=== PATIENT | male | born 1950 | race Caucasian/White ===

== ENCOUNTER 2020-03-08 16:14 | Observation (INO) | payer BC, SELFPAY ==
--- NOTE | ~2020-03-08 | XR_ITS ---
EXAMINATION: XR chest 1V portable INDICATION: Dysphagia TECHNIQUE: Portable AP chest at 2011 hours COMPARISON: None available FINDINGS: The lungs are free of acute opacities. There is no pleural effusion or pneumothorax. The he art size is normal. The visualized osseous structures are unremarkable. There is mild rightward devia tion of the trachea. IMPRESSION: 1. Mild rightward deviation of the trachea which could reflect mediastinal mass. Consider further cara luation with contrast-enhanced CT of the chest. Reviewed, dictated and finalized at location A. IMPRESSION: 1. Mild rightward deviation of the trachea which could reflect mediastinal mass . Consider further evaluation with contrast-enhanced CT of the chest.
[2020-03-08 16:18] VITALS: BP 175/92; PULSE 91; RESP 18; TEMP 36.8; O2SAT 96
--- NOTE | 2020-03-08 18:10 | ED.GENADULT ---
HPI - General Adult General Chief complaint: Unspecified Stated complaint: i feel like theres something in my throat Time Seen by Provider: 03/08/20 18:04 History of Present Illness HPI narrative: Patient is a 69 y/o male complaining of dysphagia starting this morning. He states that he was eating chicken salad this morning and felt something was stuck. Since then, he is not able to keep anything down. He attempted to drink some water, but it comes back up. There is no alleviating or exacerbating factor. Related Data Home Medications Medication Instructions Recorded Confirmed levothyroxine 25 mcg PO DAILY 03/08/20 03/08/20 Allergies Allergy/AdvReac Type Severity Reaction Status Date / Time No Known Allergies Allergy Verified 03/08/20 18:47 Review of Systems Constitutional: Constitutional: Denies chills, Denies fever(s), Reports headache(s) and Denies weakness Eyes: Eyes: Denies blurry vision ENT: Denies headache(s) and Denies neck pain Cardiovascular: Cardiovascular: Denies chest pain and Denies dyspnea Respiratory: Respiratory: Denies cough and Denies dyspnea Gastrointestinal: Gastrointestinal: Reports as per HPI, Denies abdominal pain, Denies diarrhea, Denies nausea, Reports vomiting and Reports other (unable to keep liquids down) Genitourinary: Genitourinary: Denies hematuria and Denies dysuria Musculoskeletal: Musculoskeletal: Denies back pain and Denies neck pain Neurologic: Denies headache(s) and Denies weakness PMFSH Past Medical History Medical History (Updated 03/08/20 @ 23:19 by Azucena Ospina MD) Esophageal varices Hypothyroidism Surgical History Surgical History (Updated 03/08/20 @ 20:40 by Arias Graff MD) H/O colonoscopy History of esophagogastroduodenoscopy (EGD) Social History Social History (Updated 03/08/20 @ 20:40 by Arias Graff MD) Smoking status: Never smoker Alcohol intake: former Drinks per week: 50 Substance use: never Gender identity (if verbalized by the patient): Male Sexual Orientation (if Verbalized by the Patient): Straight or Heterosexual Spiritual care concerns: No Exam Const: General: no acute distress and well developed Orientation/consciousness: oriented to person, oriented to place, oriented to time and patient oriented x3 HENMT: Head: normocephalic Ears: external ears normal General nose exam: Normal external nose present Eyes: General: appearance normal, both eyes and all related structures Conjunctivae: conjunctivae normal Neck: Neck: normal visual inspection and full ROM Chest: Chest palpation & inspection: normal inspection of the chest and no tenderness Resp: Effort & Inspection: normal respiratory effort Auscultation: clear to auscultation bilaterally Cardio: Rate: regular rate Rhythm: regular rhythm GI: GI Palp: No abdominal tenderness and Yes Soft to palpation Skin: General skin exam: normal color and turgor normal Neuro: General: oriented to person, oriented to place, oriented to time and patient oriented x3 Cognition (Neuro): normal cognition Extrem: General: normal to inspection, full ROM and no pedal edema Psych: Appearance: grossly normal Mental Status: mental status grossly normal Affect: normal affect Course Consultations Consultation #1: Discussed with Dr. Peralta, who recommends admitting to hospitalist and will plan EGD in AM. Date: 03/08/20 Time: 19:41 Consultation #2: Discussed with Dr. Graff, who agrees to admit. Date: 03/08/20 Vital Signs Vital signs: Vital Signs Temperature 36.8 C 03/08/20 16:18 Pulse Rate 91 03/08/20 16:18 Respiratory Rate 18 03/08/20 16:18 Blood Pressure 175/92 H 03/08/20 16:18 Pulse Oximetry 96 03/08/20 16:18 Temperature 36.8 C 03/08/20 16:18 Pulse Rate 72 03/08/20 21:00 Respiratory Rate 20 03/08/20 21:00 Blood Pressure 159/87 H 03/08/20 21:00 Pulse Oximetry 95 03/08/20 21:00 Medical Decision Making Vital Signs Vital
[2020-03-08] MEDS: SODIUM CHLORIDE 0.9% IV 1,000 ML 999 ML IV CONT (18:30)
[2020-03-08] MEDS: GLUCAGON FOR INJ 1 MG VIAL IV PUSH (18:30)
[2020-03-08 18:34] LABS: Basophils Percent Auto 0.5 % (0.2-1.2); Eosinophils Absolute Auto 0.1 K/mm3 (0-0.3); Eosinophils Percent Auto 2.1 % (0-4.4); Hematocrit 44.8 % (42.0-52.0); Hemoglobin 15.6 g/dL (14.0-18.0); Immature Granulocyte Absolute 0.01 K/mm3 (0.00-0.031); Immature Granulocyte Percent A 0.2 % (0-0.5); Immature Platelet Fraction Pct 4.7 % (0.9-11.2); Lymphocytes Absolute Auto 0.86 K/mm3 (0.9-3.2); Lymphocytes Percent Auto 14.2 % (18.3-44.2); Mean Corpuscular HGB Conc 34.8 g/dl (32-36); Mean Corpuscular Hemoglobin 30.6 pg (26-34); Mean Corpuscular Volume 87.8 fl (80-100); Mean Platelet Volume 11.5 fl (7.4-10.4); Monocytes Absolute Auto 0.5 K/mm3 (0.1-0.6); Monocytes Percent Auto 8.4 % (2.6-8.5); Neutrophils Absolute Auto 4.5 K/mm3 (1.3-6.7); Neutrophils Percent Auto 74.6 % (45.5-73.1); Platelet Count Result 95 k/mm3 (150-375); Red Cell Distribution Width 14.3 % (11.5-14.5); White Blood Count 6.1 K/mm3 (4.5-10.0)
[2020-03-08 18:44] LABS: Alanine Aminotransferase 38 U/L (4-50); Albumin Level 4.6 g/dL (3.5-5.1); Alkaline Phosphatase 73 U/L (38-126); Aspartate Amino Transferase 40 U/L (17-59); Bilirubin,Total 1.9 mg/dL (0.2-1.3); Blood Urea Nitrogen 13 mg/dL (9-20); Calcium 9.3 mg/dL (8.4-10.2); Carbon Dioxide 22 mmol/L (22-30); Chloride 108 mmol/L (98-107); Estimated CRCL calculation 121 ml/min; Estimated Glomerular Filt Rate > 60; Glucose 104 mg/dL (75-110); Sodium 139 mmol/L (137-145)
[2020-03-08 19:37] VITALS: BP 151/94; PULSE 85; RESP 20; O2SAT 97
[2020-03-08 19:38] VITALS: PULSE 84
--- NOTE | 2020-03-08 20:06 | PC.NURSE ---
During assessment Pt states hes not so much in pain more like discomfort, states he feels like a big chunk of meat is just sitting in his throat. Pt is able to speak clearly and moving air freely. I spoke with MD Ospina about Xray of throat he states there is no need for one, pt will be admitted and be seeing Endo in the morning.I did update Pt and on this information.
--- NOTE | 2020-03-08 20:36 | PM.IMHP ---
H&P: HPI History of Present Illness Chief complaint: i feel like theres something in my throat Narrative: This is a 69 year old morbidly obese male with known Hypothyroidism who presented to the hospital with a complaint of something getting stuck in his esophagus this morning. The patient was eating a chicken salad he got from [employer] and it got stuck when he tried to swallow it. He admits that he is missing several teeth and doesn't chew up his food well. He has had multiple episodes in the past of getting food stuck in his esophagus but it always came up on its own. He has had discomfort all day and finally decided to come into the ER as he was not able to even drink water. He denies any fevers, chills, shortness of breath, abdominal pain, dysuria, or significant chest pain. He is able to control his secretions at this time. He is mostly complaining of a discomfort in the region of his neck. The patient admits to me that he was a former alcoholic and does have a history of esophageal varices. His last EGD was about 1.5 years ago. ER provider has consulted GI, Dr. Peralta who has asked that we admit the patient to the hospital for him and he will see the patient in the morning. Review of Systems Review of Systems: All systems reviewed & are unremarkable except as noted in HPI and below PMFSH Past Medical History Medical History (Updated 03/08/20 @ 20:44 by Arias Graff MD) Esophageal varices Hypothyroidism Surgical History Surgical History (Updated 03/08/20 @ 20:40 by Arias Graff MD) H/O colonoscopy History of esophagogastroduodenoscopy (EGD) Social History Social History (Updated 03/08/20 @ 20:40 by Arias Graff MD) Alcohol intake: former Meds Home Medications and Allergies Allergies Allergy/AdvReac Type Severity Reaction Status Date / Time No Known Allergies Allergy Verified 03/08/20 18:47 Vital Signs Vital Signs - 24 hr 03/08/20 16:18 03/08/20 19:37 03/08/20 19:38 Temperature 36.8 C Pulse Rate 91 85 84 Respiratory Rate 18 20 Blood Pressure 175/92 H 151/94 H Pulse Oximetry 96 97 Exam Const: General: cooperative, alert, awake, in distress mild and uncomfortable Nutritional Appearance: obese morbidly obese Orientation/consciousness: patient oriented x3 HENMT: Head: normal to inspection General nose exam: Normal external nose present Face and sinus: normal facial exam Mouth: Yes Normal oral and palatal mucosa present and Yes oropharynx normal Eyes: Pupils: Equal, round and reactive pupils present EOM: EOMs intact bilaterally Neck: Neck: supple and no JVD Thyroid: thyroid normal Lymphatic: lymphadenopathy not noted Resp: Effort & Inspection: normal respiratory effort Auscultation: clear to auscultation bilaterally Cardio: Rate: regular rate Rhythm: regular rhythm Heart sounds: no murmurs GI: Inspection: normal to inspection Auscultation: normal bowel sounds Skin: General skin exam: normal color and no rashes or lesions noted Neuro: General: patient oriented x3 Cranial nerves: Yes CN's II-XII intact bilaterally and Yes Equal, round and reactive pupils present Speech: normal speech Motor exam (neuro): 5/5 motor strength present throughout Sensory Exam: normal sensation Extrem: General: normal to inspection and no edema Psych: Mental Status: mental status grossly normal Affect: normal affect H&P: Results Labs Labs: Short CBC 03/08/20 Range/Units 18:26 WBC 6.1 (4.5-10.0) K/mm3 Hgb 15.6 (14.0-18.0) g/dL Hct 44.8 (42.0-52.0) % Plt Count 95 L (150-375) k/mm3 BMP 03/08/20 18:26 Sodium 139 Potassium 4.0 Chloride 108 H Carbon Dioxide 22 BUN 13 Creatinine 0.70 Glucose 104 Calcium 9.3 Liver Function 03/08/20 Range/Units 18:26 Total Bilirubin 1.9 H (0.2-1.3) mg/dL AST 40 (17-59) U/L ALT 38 (4-50) U/L Alkaline Phosphatase 73 (38-126) U/L Albumin 4.6 (3.5-5.1) g/dL Imaging Chest
[2020-03-08 21:00] VITALS: BP 159/87; PULSE 72; RESP 20; O2SAT 95
--- NOTE | 2020-03-08 21:40 | PC.NURSE ---
Pt states the tight feeling in his throat has now moved down to his belly.
[2020-03-08 22:00] VITALS: BP 159/87; PULSE 71; RESP 18; O2SAT 96
[2020-03-08 22:20] VITALS: BP 128/60; PULSE 82; RESP 18; TEMP 36.5; O2SAT 94; BMI 43.3
[2020-03-08 22:28] VITALS: BMI 44.4
--- NOTE | 2020-03-08 22:36 | ADMGEN ---
This patient, John Urbano, was admitted to [facility] Surg Room 316-01. Patient/family oriented to hospital policies and general routines including ID bracelet, bed and alarms, visiting hours, pain management, procedures, bathroom and other care routines, personal items, smoking policy, room service/diet, and visiting hours. Valuables list has been completed. Information on how to activate the Rapid Response Team has been discussed. Patient/Family are encouraged to report perceived risks to care and to ask questions if they do not understand what they are told or what they should do.
[2020-03-08] MEDS: SODIUM CHLORIDE 0.9% IV 1,000 ML 125 ML IV CONT (22:41)
[2020-03-08] MEDS: MORPHINE SULFATE 2 MG/ML INJ IV PUSH (22:46)
[2020-03-09] VITALS (9 sets, daily range): BP systolic 140–162; BP diastolic 75–108; PULSE 63–91; RESP 14–20; TEMP 36.2–36.8; O2SAT 95–99
[2020-03-09] MEDS: MORPHINE SULFATE 2 MG/ML INJ IV PUSH (02:56)
[2020-03-09] MEDS: SODIUM CHLORIDE 0.9% IV 1,000 ML 125 ML IV CONT (05:23)
[2020-03-09] MEDS: LEVOTHYROXINE SODIUM INJ 100 MCG/5 ML VIAL 12.5 MCG IV PUSH (06:51)
--- NOTE | 2020-03-09 07:24 | WPDANESEPPF ---
Anes - Initial Pre Proc Eval Procedure: Operation Date: 03/09/20 12:30 Proposed Procedures p Esophagogastroduodenoscopy - Panchito Peralta MD Date/Time: 03/09/20 07:24 Surgeon: Jose Feliz MD Pre Op Diagnosis: esophageal obstruction Patient Data Age: 69 Gender: M Height: 1.78 m Weight: 140.6 kg Last Vital Signs Temp 36.3 C L 03/09/20 06:00 Pulse 91 03/09/20 06:00 Resp 16 03/09/20 06:00 BP 146/75 H 03/09/20 06:00 Pulse Ox 97 03/09/20 06:00 Allergies Allergy/AdvReac Type Severity Reaction Status Date / Time No Known Allergies Allergy Verified 03/08/20 18:47 Home Medications Medication Instructions Recorded Confirmed Type levothyroxine 25 mcg PO DAILY 03/08/20 03/08/20 History Laboratory Tests 03/08/20 03/08/20 18:26 18:26 WBC 6.1 K/mm3 K/mm3 (4.5-10.0) RBC 5.10 M/mm3 M/mm3 (4.6-6.20) Hgb 15.6 g/dL g/dL (14.0-18.0) Hct 44.8 % % (42.0-52.0) MCV 87.8 fl fl (80-100) MCH 30.6 pg pg (26-34) MCHC 34.8 g/dl g/dl (32-36) RDW 14.3 % % (11.5-14.5) Plt Count 95 k/mm3 L k/mm3 (150-375) MPV 11.5 fl H fl (7.4-10.4) Immature Gran % (Auto) 0.2 % % (0-0.5) Neut % (Auto) 74.6 % H % (45.5-73.1) Lymph % (Auto) 14.2 % L % (18.3-44.2) [place] % (Auto) 8.4 % % (2.6-8.5) Eos % (Auto) 2.1 % % (0-4.4) Baso % (Auto) 0.5 % % (0.2-1.2) Lymph # (Auto) 0.86 K/mm3 L K/mm3 (0.9-3.2) [place] # (Auto) 0.5 K/mm3 K/mm3 (0.1-0.6) Eos # (Auto) 0.1 K/mm3 K/mm3 (0-0.3) Baso # (Auto) 0.0 K/mm3 K/mm3 (0.0-0.1) Abs Immat Gran (auto) 0.01 K/mm3 K/mm3 (0.00-0.031) Absolute Neuts (auto) 4.5 K/mm3 K/mm3 (1.3-6.7) Absolute Nucleated RBC 0.0 K/mm3 K/mm3 (0.0-0.012) Nucleated RBC % 0.0 % % (0.0-0.2) % Immature Plt Fraction 4.7 % % (0.9-11.2) Sodium 139 mmol/L mmol/L (137-145) Potassium 4.0 mmol/L mmol/L (3.4-5.0) Chloride 108 mmol/L H mmol/L (98-107) Carbon Dioxide 22 mmol/L mmol/L (22-30) BUN 13 mg/dL mg/dL (9-20) Creatinine 0.70 mg/dL mg/dL (0.7-1.3) Estim Creat Clear Calc 121 ml/min ml/min Estimated GFR > 60 (59 - ) Glucose 104 mg/dL mg/dL (75-110) Calcium 9.3 mg/dL mg/dL (8.4-10.2) Total Bilirubin 1.9 mg/dL H mg/dL (0.2-1.3) AST 40 U/L U/L (17-59) ALT 38 U/L U/L (4-50) Alkaline Phosphatase 73 U/L U/L (38-126) Total Protein 9.0 g/dL H g/dL (6.3-8.2) Albumin 4.6 g/dL g/dL (3.5-5.1) Patient hx anesthesia problems: none Family hx anesthesia problems: none PMFSH Past Medical History Medical History (Updated 03/09/20 @ 07:27 by Marshall Manuel MD) Esophageal varices ETOH abuse Food impaction of esophagus Hypothyroidism Morbid obesity with BMI of 40.0-44.9, adult Surgical History Surgical History (Updated 03/08/20 @ 20:40 by Arias Graff MD) H/O colonoscopy History of esophagogastroduodenoscopy (EGD) Social History Social History (Updated 03/08/20 @ 20:40 by Arias Graff MD) Smoking status: Never smoker Alcohol intake: former Drinks per week: 50 Substance use: never Gender identity (if verbalized by the patient): Male Sexual Orientation (if Verbalized by the Patient): Straight or Heterosexual Spiritual care concerns: No Anes - Eval Final PreProcedure Day of Procedure 03/09/20 07:24 Patient weight: morbidly obese Heart: regular rate and rhythm Lungs: clear to auscultation and normal air movement Airway: Mallampati scale class II Neurological: alert and oriented Last oral intake: >/= 8 hours ASA classification: IV Emergent: no Anesthetic plan: proceed Anesthesia type and monitoring: general ETT Informed Consent: The patient's anesthetic plan and its attendant risks and benefits were discussed with the patient/famil
--- NOTE | 2020-03-09 07:31 | PC.NURSE ---
To GI Lab per juliet, IV #20 left wrist, SL. Report given to KIRA Ko.
[2020-03-09] MEDS: LACTATED RINGERS 1,000 ML 150 ML IV CONT (07:37)
--- NOTE | 2020-03-09 07:51 | WPDGICN ---
Assessment and Plan Assessment and plan (1) Food impaction of esophagus: Qualifiers: Encounter type: initial encounter Qualified Code(s): T18.128A - Food in esophagus causing other injury, initial encounter Code(s): T18.128A - Food in esophagus causing other injury, initial encounter Status: Acute Assessment and Plan: Patient has a food obstruction that began 24 hours ago. Check-in Po which appears stuck in the mid portion of the chest. Plan is for EGD to assess and remove obstruction. Symptoms seem to begun after treatment esophageal varices esophageal narrowing is suspected further recommendations will be given after endoscopy. (2) Esophageal varices: Qualifiers: Esophageal varices type: unspecified type Esophageal varices bleeding: without bleeding Qualified Code(s): I85.00 - Esophageal varices without bleeding Code(s): I85.00 - Esophageal varices without bleeding Status: Chronic Assessment and Plan: Patient has a distant history of esophageal varices. This is attributed alcoholic cirrhosis of the liver. Patient currently is abstinent from alcohol for many years. Currently follows with Gastroenterology in [place]. These will be assessed at time of endoscopy. (3) Morbid obesity with BMI of 40.0-44.9, adult: Code(s): E66.01 - Morbid (severe) obesity due to excess calories; Z68.41 - Body mass index (BMI) 40.0-44.9, adult Status: Acute (4) Cirrhosis: Code(s): K74.60 - Unspecified cirrhosis of liver Status: Acute Assessment and Plan: Distant history of alcohol abuse. Patient currently abstinent from alcohol. This is likely etiology for his history of cirrhosis. GI Consult Note Consult date/time: 03/09/20 07:51 HPI: John Urbano is a 69 year old male Seen in evaluation at the request of the emergency room. Patient in usual state of health until yesterday morning at 6:00 a.m. he was eating a chicken sandwich. He abruptly had food catch in his chest was unable to eat or swallow any additional food. He states this continues to feel stuck in his chest. He presented to the emergency room last evening. He was admitted for IV fluids rehydration an EGD today for possible food impaction. Patient states he has had difficulty swallowing for several years. He states this began initially after banding of esophageal varices several years ago. Patient typically seeks medical care in [place]. He currently lives in [place]. 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 Patient has a past medical history of heavy alcohol intake but no longer drinks he. Review of Systems Review of Systems: All systems reviewed & are unremarkable except as noted in HPI and below PMFSH Past Medical History Medical History Esophageal varices ETOH abuse Food impaction of esophagus Hypothyroidism Morbid obesity with BMI of 40.0-44.9, adult Surgical History Surgical History H/O colonoscopy History of esophagogastroduodenoscopy (EGD) Social History Social History Smoking status: Never smoker Alcohol intake: former Drinks per week: 50 Substance use: never Gender identity (if verbalized by the patient): Male Sexual Orientation (if Verbalized by the Patient): Straight or Heterosexual Spiritual care concerns: No Meds Home Medications and Allergies Home Medications Medication Instructions Recorded Confirmed Type levothyroxine 25 mcg PO DAILY 03/08/20 03/08/20 History Allergies Allergy/AdvReac Type Severity Reaction Status Date / Time No Known Allergies Allergy Verified 03/08/20 18:47 Vital Signs Vital Signs - 24 hr 03/08/20 16:18 03/08/20 19:37 03/08/20 19:38 Temperature 98.3 F Pulse Rate 91 85 84 Respiratory Rate 18 20 Blood Pressure 175/92
[2020-03-09] MEDS: ENOXAPARIN 40 MG/0.4 ML SYRINGE SUB-Q (10:33)
--- NOTE | 2020-03-09 10:39 | PC.NURSE ---
Returned from GI Lab. Report received.
--- NOTE | 2020-03-09 14:35 | PM.DS ---
DS: Admitting Diagnosis Admitting Diagnosis Admitting Diagnosis: Food in esophagus causing other injury, initial encounter DS: Discharge Diagnosis Discharge Diagnosis (1) Food impaction of esophagus: Qualifiers: Encounter type: initial encounter Qualified Code(s): T18.128A - Food in esophagus causing other injury, initial encounter Code(s): T18.128A - Food in esophagus causing other injury, initial encounter Status: Acute Assessment and Plan: patient presented with symptoms of food impaction. He was monitored overnight and had EGD this morning. EGD showed a large amount of impacted food that was removed. 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 Patient tolerated the procedure well. Patient voices understanding of the above findings. A copy of the report was provided to the patient since he may have a follow-up EGD in [place]. BP elevated but patient states BP ususally well controlled. Will have him monitor as outpatient (2) Hypothyroidism: Qualifiers: Hypothyroidism type: unspecified Qualified Code(s): E03.9 - Hypothyroidism, unspecified Code(s): E03.9 - Hypothyroidism, unspecified Status: Chronic Assessment and Plan: Stable. We continued his levothyroxine. (3) Esophageal varices: Qualifiers: Esophageal varices type: unspecified type Esophageal varices bleeding: without bleeding Qualified Code(s): I85.00 - Esophageal varices without bleeding Code(s): I85.00 - Esophageal varices without bleeding Status: Chronic Assessment and Plan: Patient has a history of esophageal varices although not visualized by the EGD this time. (4) Abnormal chest xray: Code(s): R93.89 - Abnormal findings on diagnostic imaging of other specified body structures Status: Acute Assessment and Plan: Chest x-ray on admission here showed a rightward deviation of the trachea which could reflect and mediastinal mass. No dominant adenopathy on exam. I offered a CT of the chest but patient is requesting discharge and states he can have this CT scan done when he returns home. This was not felt that this was a time critical finding but I did emphasize the importance of having this done in a timely manner. He voices understanding of this. A copy of the report was provided to the patient. (5) Cirrhosis: Code(s): K74.60 - Unspecified cirrhosis of liver Status: Acute Assessment and Plan: Patient's history of cirrhosis from alcoholism. Total bilirubin level was 1.9 otherwise LFTs within normal limits. this is etiology of his esophageal varices and thrombocytopenia. (6) Thrombocytopenia: Code(s): D69.6 - Thrombocytopenia, unspecified Status: Acute Assessment and Plan: Plt count 95K. Oseasn states this is chronic. DS: Summary Hospital Course Reason for hospitalization: 69yo male here for food impaction. Please see H&P for details Hospital Course: As above Time Spent with Patient Time attestation: Total time spent providing and/or coordinating discharge services:32 minutes Time spent: Greater than 30 minutes Specific discharge activities: Discussion with patient. Discussed with GI. Exam Narrative: Exam Narrative: AF 97.4 158/80 66 20 98% ra Gen - NARD Neck - no axillary, supraclav or anterior cervical dominate adenopathy. Chest - CTA bilaterally, nml RR CV - RRR S1/S2 Abd - Soft, obese, NT Ext - No pedal edema Psych - Nml mood and affect Skin - Warm and dry DS: Data Data Completed and Pending Labs on day of discharge: Labs from last 24 hours 03/08/20 03/08/20 18:26 18:26 WBC 6.1 RBC 5.10 Hgb 15.6 Hct 44.8 MCV 87.8 MCH 30.6 MCHC 34.8 RDW 14.3 Plt Count 95 L MPV 11.5 H Immature Gran % (Auto) 0.2 Neut % (Auto) 74.6 H Lymph % (Auto) 14.2 L [place] % (Auto) 8.4 Eos %
== END 2020-03-09 15:30 | disposition home or self-care (01) ==
LOC: ANHED 20:08 → ANH3MEDSUR 20:54
PROVIDERS: Internal Medicine Gastroenterology; Admitting Provider Family Medicine; Emergency Provider Emergency Medicine; Visit Provider Internal Medicine
PROC: 0DJ08ZZ Inspection of Upper Intestinal Tract, Via Natural or Artificial Opening Endoscopic (ICD-10-PCS; CPT 43235; principal; 2020-03-09 12:30)
DX: T18.128A Food in esophagus causing other injury, initial encounter (principal); I85.00 Esophageal varices without bleeding; Q39.4 Esophageal web; D69.6 Thrombocytopenia, unspecified; E66.01 Morbid (severe) obesity due to excess calories; E03.9 Hypothyroidism, unspecified; K74.60 Unspecified cirrhosis of liver; Z68.41 Body mass index [BMI] 40.0-44.9, adult; F10.21 Alcohol dependence, in remission
CPT/HCPCS: 43247; 36415; 71045; 80053; 85025; 85055; 96361; 96372; 96374; 96375; 96376; 99285; G0378; J1610; J1650; J2060; J2270; J2704; J3360; J7030; J7120